=== PATIENT | male | born 1965 | race American Indian/Alaskan Native ===

== ENCOUNTER 2024-11-01 20:27 | Emergency (ER) | payer MEDICARE, OTHER ==
[2024-11-01] MEDS: methylPREDNISolone Sodium Succinate 125 MG/2 ML SDV IM ONE (20:48)
[2024-11-01] MEDS: traMADol 50 MG Tab PO ONE (20:49)
[2024-11-01 21:20] VITALS: BP 168/94; PULSE 81
== END 2024-11-01 21:15 | disposition home or self-care (01) ==
LOC: CC.ED 20:27
DX: M25.542 Pain in joints of left hand (principal); Z86.16 Personal history of COVID-19; Z90.49 Acquired absence of other specified parts of digestive tract; I10 Essential (primary) hypertension; Z79.4 Long term (current) use of insulin; Z79.899 Other long term (current) drug therapy; Z79.890 Hormone replacement therapy; Z88.8 Allergy status to other drugs, medicaments and biological substances
CPT/HCPCS: 96372; 99283; 99284; A9270-GY; J2919